=== PATIENT | male | born 1955 | race Caucasian/White ===

== ENCOUNTER → 2020-09-14 | Outpatient (CLI) | payer MEDICARE ==
[~2020-09-14] MED LIST: PREDNISONE20 MG PO
== END ==
LOC: KOH-I 13:55
DX: M47.26 Other spondylosis with radiculopathy, lumbar region (principal)
CPT/HCPCS: 72100

== ENCOUNTER → 2021-04-30 | Outpatient (CLI) | payer OTHER ==
[~2021-04-30] VITALS: Ht 175.3 cm; Wt 98.0 kg
== END ==
LOC: EROP 08:21
DX: U07.1 COVID-19 (principal); Z23 Encounter for immunization; E11.9 Type 2 diabetes mellitus without complications
CPT/HCPCS: M0247; Q0247